=== PATIENT | male | born 1950 | race Hispanic/Latino ===

== ENCOUNTER → 2018-01-19 | Outpatient (CLI) | payer OTHER ==
[~2018-01-19] MED LIST: NO HOME MEDS
== END | disposition home or self-care (01) ==
LOC: OIH 10:38
PROVIDERS: ATTEND Internal Medicine
DX: R07.89 Other chest pain (principal)
CPT/HCPCS: 71046

== ENCOUNTER → 2018-05-19 | Outpatient (CLI) | payer OTHER | END | disposition home or self-care (01) | LOC: OIH 07:37 | PROVIDERS: ATTEND Internal Medicine | DX: I10 Essential (primary) hypertension (principal) | CPT/HCPCS: 71046 ==

== ENCOUNTER → 2018-08-11 | Outpatient (CLI) | payer OTHER | END | disposition home or self-care (01) | LOC: RAH 10:00 | PROVIDERS: ATTEND Internal Medicine | DX: N20.0 Calculus of kidney (principal); R16.0 Hepatomegaly, not elsewhere classified; M47.816 Spondylosis without myelopathy or radiculopathy, lumbar region; N40.0 Benign prostatic hyperplasia without lower urinary tract symptoms; Z90.49 Acquired absence of other specified parts of digestive tract | CPT/HCPCS: 74176 ==

== ENCOUNTER → 2019-05-09 | Outpatient (CLI) | payer OTHER | END | disposition home or self-care (01) | LOC: OIH 07:55 | PROVIDERS: ATTEND Internal Medicine | DX: I10 Essential (primary) hypertension (principal); M47.814 Spondylosis without myelopathy or radiculopathy, thoracic region | CPT/HCPCS: 71046 ==

== ENCOUNTER 2020-05-22 07:49 | Day surgery (SDC) | payer OTHER ==
[2020-05-16 12:27] LABS: BASOPHILS % (AUTO) 0.6 % (0.0-5.0); EOSINOPHILS % (AUTO) 2.3 % (0.0-8.0); HEMATOCRIT 44.8 % (42-54); LYMPHOCYTES % (AUTO) 38.9 % (21.0-51.0); MEAN CORPUSCULAR HEMOGLOBIN 30.3 pg (27.0-33.0); MEAN CORPUSCULAR HGB CONC 33.5 g/dL (32.0-36.0); MEAN CORPUSCULAR VOLUME 90.5 fL (79-99); MONOCYTES % (AUTO) 8.3 % (3.0-13.0); NEUTROPHILS % (AUTO) 49.7 % (40.0-77.0); PLATELET COUNT (AUTO) 196 K/uL (130-400); RED BLOOD CELL COUNT(AUTO) 4.95 MIL/uL (4.50-6.20); WHITE BLOOD COUNT (AUTO) 6.6 K/uL (4.8-10.8)
[2020-05-16 12:32] LABS: APPEARANCE,URINE Clear (CLEAR); BILIRUBIN,URINE Negative (NEGATIVE); COLOR,URINE Yellow (YELLOW); GLUCOSE, URINE (UA) Negative (NEGATIVE); KETONES,URINE Negative (NEGATIVE); LEUKOCYTE ESTERASE ,URINE Moderate (NEGATIVE); NITRATE,URINE Negative (NEGATIVE); OCCULT BLOOD,URINE Moderate (NEGATIVE); PROTEIN,URINE Negative (NEGATIVE); UROBILINOGEN,URINE 0.2 mg/dL (0.2-1.0)
[2020-05-16 12:44] LABS: INR 1.04 (0.85-1.15); PROTHROMBIN TIME 11.1 SEC (9.6-11.6)
[2020-05-16 12:45] LABS: PARTIAL THROMBOPLASTIN TIME 26.2 SEC (26.3-35.5)
[2020-05-16 12:49] LABS: POTASSIUM 4.5 mmol/L (3.5-5.1)
[2020-05-16 12:56] LABS: BACTERIA,URINE Few /HPF (None Seen)
[2020-05-16 12:57] LABS: SQUAMOUS EPITHELIAL CELL,UR None Seen /HPF (0-2)
[2020-05-20 14:00] VITALS: BP 140/81
[~2020-05-22] VITALS: Ht 175.3 cm; Wt 104.2 kg
[2020-05-22] VITALS (20 sets, daily range): BP systolic 88–156; BP diastolic 51–92
[2020-05-22] MEDS: GENTAMICIN SULFATE 320 MG in SODIUM CHLORIDE 0.9% 100 ML IV SCH ×2 (06:00→10:05)
[2020-05-22] MEDS: CEFTRIAXONE SODIUM 1 GM IVP SCH ×2 (06:00→10:20)
[~2020-05-22 07:49] MED LIST changes: +ATOR10 PO; +DICL50TA9 PO; +LEVO500T89 PO; +LOSA50TA64 PO; +MULT-1333 PO; -NO HOME MEDS; +OMEP20TA2 PO; +TAMS-1 PO; +WHEA1POW2 PO
[2020-05-22] MEDS ORDERED: LACTATED RINGERS 1000ML 1,000 ML IV ONE (09:02)
[2020-05-22] MEDS ORDERED: MIDAZOLAM HCL 1 MG/ML 2ML VIAL ONE ×2 (09:03→10:02)
[2020-05-22] MEDS ORDERED: ONDANSETRON HCL 4 MG/2 ML VIAL ONE (10:02)
[2020-05-22] MEDS ORDERED: LIDOCAINE PF 2% 5ML ABBOJECT ONE (10:02)
[2020-05-22] MEDS ORDERED: DEXAMETHASONE SOD PHOSPHATE 10MG/ML 1ML VIAL ONE (10:02)
[2020-05-22] MEDS ORDERED: SUCCINYLCHOLINE 200MG/10ML SYR ONE (10:02)
[2020-05-22] MEDS ORDERED: PROPOFOL 10 MG/ML 20ML VIAL IV ONE (10:03)
[2020-05-22] MEDS ORDERED: ROCURONIUM 10MG/1ML SYR 10 MG/ML ML ONE ×3 (10:03→12:23)
[2020-05-22] MEDS ORDERED: FENTANYL CITRATE PF 50 MCG/1 ML 2ML VIAL ONE (10:03)
[2020-05-22] MEDS ORDERED: EPHEDRINE SULFATE 50 MG/ML AMPULE ONE (10:31)
[2020-05-22] MEDS ORDERED: NEOSTIGMINE 5MG/5ML SYR IV ONE (12:34)
[2020-05-22] MEDS ORDERED: GLYCOPYRROLATE 1 MG/5 ML SYRINGE ONE (12:34)
[2020-05-22] MEDS ORDERED: SUGAMMADEX SODIUM 200 MG/2 ML VIAL IV ONE (12:36)
[2020-05-22] MEDS ORDERED: MEPERIDINE-PF 25 MG/ML SYG ONE ×2 (13:07→13:30)
== END 2020-05-22 14:40 ==
LOC: DAH 07:49
PROVIDERS: ATTEND Urology
DX: N40.1 Benign prostatic hyperplasia with lower urinary tract symptoms (principal); N21.0 Calculus in bladder; R33.9 Retention of urine, unspecified; E66.01 Morbid (severe) obesity due to excess calories; I10 Essential (primary) hypertension; Z79.01 Long term (current) use of anticoagulants; Z79.899 Other long term (current) drug therapy; Z20.828 Contact with and (suspected) exposure to other viral communicable diseases
CPT/HCPCS: 36415 ×2; 52318; 52648; 71045; 80048; 81001; 82360; 85025; 85610; 85730; 87077; 87088; 87186; 93005; A4215; A4216; A4221; A4222; A4223; A4354; A4358; A4600; A4649; A4663; A6260; C9803; J0330; J0696; J1100; J1580; J2001; J2175 ×2; J2250 ×2; J2405; J2704; J2710; J3010; J3490 ×2; J7120 ×2; U0003

== ENCOUNTER → 2021-03-31 | Outpatient (CLI) | payer OTHER ==
[~2021-03-31] MED LIST changes: -LEVO500T89 PO; +LEVO500T90 PO
== END | disposition home or self-care (01) ==
LOC: OIH 09:40
PROVIDERS: ATTEND Internal Medicine
DX: M47.816 Spondylosis without myelopathy or radiculopathy, lumbar region (principal); Z90.49 Acquired absence of other specified parts of digestive tract
CPT/HCPCS: 72100

== ENCOUNTER 2021-05-06 18:39 | Emergency (ER) | payer OTHER ==
[~2021-05-06] VITALS: Ht 172.7 cm; Wt 103.0 kg
[2021-05-06] MEDS ORDERED: ACETAMINOPHEN 500 MG TABLET ONE (20:12)
[2021-05-06] MEDS ORDERED: ACETAMINOPHEN 500 MG TABLET PO ONE (20:30)
[2021-05-06 21:53] LABS: BASOPHILS % (AUTO) 0.3 % (0.0-5.0); EOSINOPHILS % (AUTO) 0.5 % (0.0-8.0); HEMATOCRIT 43.7 % (42-54); LYMPHOCYTES % (AUTO) 10.1 % (21.0-51.0); MEAN CORPUSCULAR HEMOGLOBIN 30.1 pg (27.0-33.0); MEAN CORPUSCULAR HGB CONC 33.4 g/dL (32.0-36.0); MEAN CORPUSCULAR VOLUME 90.1 fL (79-99); MONOCYTES % (AUTO) 10.6 % (3.0-13.0); NEUTROPHILS % (AUTO) 78.2 % (40.0-77.0); PLATELET COUNT (AUTO) 159 K/uL (130-400); RED BLOOD CELL COUNT(AUTO) 4.85 MIL/uL (4.50-6.20); RED CELL DISTRIBUTION WIDTH 13.2 % (11.0-15.5); WHITE BLOOD COUNT (AUTO) 9.3 K/uL (4.8-10.8)
[2021-05-06 22:12] LABS: CREATININE 1.1 mg/dL (0.5-1.5); POTASSIUM 4.5 mmol/L (3.5-5.1)
[2021-05-06 22:17] LABS: ALBUMIN 4.1 g/dL (3.5-5.0); BILIRUBIN,TOTAL 1.2 mg/dL (0.2-1.0); CRP QUANTITATIVE 2.5 mg/L (0.00-9.0); TOTAL PROTEIN, SERUM 7.1 g/dL (6.0-8.3)
[2021-05-06] MEDS ORDERED: OSELTAMIVIR PHOSPHATE 75 MG CAP PO ONE (22:30)
[2021-05-06] MEDS ORDERED: OSEL75 PO (22:35)
[2021-05-06] MEDS ORDERED: ACET-2247 PO (22:35)
[2021-05-06 22:48] VITALS: BP 124/60
== END 2021-05-06 22:45 | disposition home or self-care (01) ==
LOC: EDH 18:39
DX: J10.1 Influenza due to other identified influenza virus with other respiratory manifestations (principal); I10 Essential (primary) hypertension; E78.00 Pure hypercholesterolemia, unspecified; Z20.822 Contact with and (suspected) exposure to COVID-19; Z87.442 Personal history of urinary calculi; Z98.890 Other specified postprocedural states; Z79.899 Other long term (current) drug therapy
CPT/HCPCS: 36415; 71045; 80053; 83605; 84484; 85025; 86140; 87040 ×2; 87635; 87804 ×2; 99284; C9803

== ENCOUNTER 2023-10-13 06:41 | Day surgery (SDC) | payer OTHER ==
[2023-10-07 12:33] LABS: BASOPHILS # (AUTO) 0.04 K/uL (0.00-0.20); BASOPHILS % (AUTO) 0.6 % (0.0-5.0); EOSINOPHILS # (AUTO) 0.11 K/uL (0.00-0.70); EOSINOPHILS % (AUTO) 1.7 % (0.0-8.0); IMMATURE GRANULOCYTE ABSOLUTE 0.02 K/uL (0-1); LYMPHOCYTES # (AUTO) 2.5 K/uL (1.0-4.8); LYMPHOCYTES % (AUTO) 37.7 % (21.0-51.0); MEAN CORPUSCULAR HEMOGLOBIN 30.7 pg (27.0-33.0); MEAN CORPUSCULAR HGB CONC 33.7 g/dL (32.0-36.0); MEAN CORPUSCULAR VOLUME 91.1 fL (79-99); MONOCYTES # (AUTO) 0.5 K/uL (0.1-1.0); MONOCYTES % (AUTO) 8.1 % (3.0-13.0); NEUTROPHILS # (AUTO) 3.4 K/uL (1.8-7.7); NEUTROPHILS % (AUTO) 51.6 % (40.0-77.0); PLATELET COUNT (AUTO) 189 K/uL (130-400); RED BLOOD CELL COUNT(AUTO) 4.72 MIL/uL (4.50-6.20); WHITE BLOOD COUNT (AUTO) 6.6 K/uL (4.8-10.8)
[2023-10-07 12:45] LABS: POTASSIUM 4.7 mmol/L (3.5-5.1)
[2023-10-07 12:55] VITALS: BP 162/83; PULSE 54; RESP 17
[2023-10-07 13:32] LABS: APPEARANCE,URINE CLEAR (CLEAR); BILIRUBIN,URINE NEGATIVE (NEGATIVE); COLOR,URINE LIGHT-YELLOW (YELLOW); GLUCOSE, URINE (UA) NEGATIVE (NEGATIVE); KETONES,URINE NEGATIVE (NEGATIVE); LEUKOCYTE ESTERASE ,URINE NEGATIVE Leu/uL (NEGATIVE); NITRATE,URINE NEGATIVE (NEGATIVE); OCCULT BLOOD,URINE NEGATIVE (NEGATIVE); PH,URINE 5.5 (5.0-8.0); PROTEIN,URINE 10 mg/dL (NEGATIVE); UROBILINOGEN,URINE 0.2 mg/dL (0.2-1.0)
[2023-10-07 13:34] LABS: ADD UA MICROSCOPIC YES
[2023-10-07 13:36] LABS: MUCUS,URINE RARE LPF (None Seen); RBC,URINE 0-1 /HPF (0-1); SQUAMOUS EPITHELIAL CELL,UR RARE /HPF (0-2); WBC,URINE 0-1 /HPF (0-1)
[~2023-10-13] VITALS: Ht 172.7 cm; Wt 101.9 kg
[2023-10-13] VITALS (17 sets, daily range): BP systolic 105–162; BP diastolic 58–88; PULSE 58–79; RESP 14–18
[~2023-10-13 06:41] MED LIST changes: +ACET-2247 PO; +LEVO-70 PO; -LEVO500T90 PO; +OSEL75 PO
[2023-10-13] MEDS: MEROPENEM 1 GM VIAL ONE (08:20)
[2023-10-13] MEDS: LACTATED RINGERS 1000ML 1,000 ML IV ONE (08:21)
[2023-10-13] MEDS ORDERED: FINA5TAB41 PO (08:46)
[2023-10-13] MEDS ORDERED: MIDAZOLAM HCL 1 MG/ML 2ML VIAL ONE (08:46)
[2023-10-13] MEDS ORDERED: benafiber PO (08:46)
[2023-10-13] MEDS ORDERED: MELA10TA2 PO (08:46)
[2023-10-13] MEDS ORDERED: DICL35CA3 PO (08:46)
[2023-10-13] MEDS ORDERED: TAMS-1 PO (08:46)
[2023-10-13] MEDS ORDERED: ATOR10 PO (08:46)
[2023-10-13] MEDS ORDERED: LOSA50TA64 PO (08:46)
[2023-10-13] MEDS ORDERED: MULT-1203 PO (08:46)
[2023-10-13] MEDS ORDERED: GABA-529 PO (08:46)
[2023-10-13] MEDS: MEROPENEM 1 GM VIAL IVPB ONE ×2 (08:50)
[2023-10-13] MEDS ORDERED: SUCCINYLCHOLINE CHLORIDE 20 MG/ML 10 ML VIAL ONE (08:51)
[2023-10-13] MEDS ORDERED: PROPOFOL 10 MG/ML 20ML VIAL IV ONE (08:51)
[2023-10-13] MEDS ORDERED: FENTANYL CITRATE PF 50 MCG/1 ML 2ML VIAL ONE (08:52)
[2023-10-13] MEDS ORDERED: ROCURONIUM BROMIDE 10MG/1ML 5ML VL ONE (08:52)
[2023-10-13] MEDS ORDERED: EPHEDRINE SULFATE 50 MG/ML AMPULE ONE (09:26)
[2023-10-13] MEDS ORDERED: NEOSTIGMINE METHYLSULFATE 1MG/ML IV ONE (09:36)
[2023-10-13] MEDS ORDERED: GLYCOPYRROLATE 0.2 MG/ML 5 ML VIAL ONE (09:36)
[2023-10-13] MEDS ORDERED: NALOXONE HCL 0.4 MG/1 ML ML ONE (09:47)
[2023-10-13] MEDS ORDERED: SULF1TAB42 PO ×2 (11:06)
== END 2023-10-13 11:30 | disposition home or self-care (01) ==
LOC: DAH 06:41
PROVIDERS: ATTEND Urology
DX: N21.0 Calculus in bladder (principal); E66.01 Morbid (severe) obesity due to excess calories; I10 Essential (primary) hypertension; Z98.890 Other specified postprocedural states; Z68.34 Body mass index [BMI] 34.0-34.9, adult
CPT/HCPCS: 71045; 80048; 85025; 87088; 81001; 36415 ×2; 93005; 52317; 82360; A6260; A4663; J7120 ×2; A4344; A4354; C1758; J3010; J2310; J0330; J3490 ×3; J2250; J2704; J2710; J2185 ×2; A4358; A4215; A4223; A4222; A4221; A4600

== ENCOUNTER → 2023-12-08 | Outpatient (CLI) | payer OTHER ==
[~2023-12-08] MED LIST changes: -ACET-2247 PO; +DICL35CA3 PO; -DICL50TA9 PO; +FINA5TAB41 PO; +GABA-529 PO; -LEVO-70 PO; +MELA10TA2 PO; +MULT-1203 PO; -MULT-1333 PO; -OMEP20TA2 PO; -OSEL75 PO; +SULF1TAB42 PO; -WHEA1POW2 PO; +benafiber PO
== END | disposition home or self-care (01) ==
LOC: RAH 11:10
PROVIDERS: ATTEND Internal Medicine
DX: S83.242A Other tear of medial meniscus, current injury, left knee, initial encounter (principal); M17.12 Unilateral primary osteoarthritis, left knee; M23.90 Unspecified internal derangement of unspecified knee; M25.462 Effusion, left knee; Z68.34 Body mass index [BMI] 34.0-34.9, adult; X58.XXXA Exposure to other specified factors, initial encounter; Y93.89 Activity, other specified; Y92.89 Other specified places as the place of occurrence of the external cause; Y99.8 Other external cause status
CPT/HCPCS: 73560

== ENCOUNTER → 2024-03-15 | Outpatient (CLI) | payer OTHER ==
[~2024-03-15] MED LIST changes: +GADOTERATE MEGLUMINE 10 MMOL/20 ML VIAL IV ONE
--- NOTE | 2024-03-15 15:34 | HMCIMG ---
MR KNEE LEFT WWO HISTORY: Left knee pain COMPARISON: None TECHNIQUE: MRI of the left knee was performed utilizing multiple pulse sequences in axial, coronal and sagittal planes. Patient was given 20 cc of Clariscan through intravenous route. FINDINGS: No abnormal signal intensity is seen of the visualized bony structure. There is anterior cruciate ligament tear. There is posterior cruciate ligament sprain. There are motion artifacts degrading the image quality. Medial collateral ligament sprain is seen. Lateral collateral ligament is intact. Focal cartilage loss is seen involving the medial femorotibial joint compartment. Moderate joint effusion is seen. Quadriceps tendon and patellar tendon are within normal limits. There is intrasubstance tear involving the medial and lateral menisci. There is medial meniscal tear involving anterior horn, posterior horn and body with both superior and inferior extension. No evidence of Clark's cyst is seen. IMPRESSION: 1. Medial meniscal tear. Anterior cruciate ligament tear. Posterior cruciate sprain and medial collateral ligament sprain. Moderate joint effusion.
== END | disposition home or self-care (01) ==
LOC: RAH 13:14
PROVIDERS: ATTEND Internal Medicine
DX: S83.242A Other tear of medial meniscus, current injury, left knee, initial encounter (principal); S83.512A Sprain of anterior cruciate ligament of left knee, initial encounter; M23.92 Unspecified internal derangement of left knee; M25.462 Effusion, left knee; R26.81 Unsteadiness on feet; X58.XXXA Exposure to other specified factors, initial encounter; Y93.89 Activity, other specified; Y92.89 Other specified places as the place of occurrence of the external cause; Y99.8 Other external cause status
CPT/HCPCS: 73723; A9575

== ENCOUNTER → 2024-11-02 | Outpatient (CLI) | payer OTHER ==
[~2024-11-02] MED LIST changes: -GADOTERATE MEGLUMINE 10 MMOL/20 ML VIAL IV ONE; -TAMS-1 PO; +TAMS-55 PO
--- NOTE | 2024-11-03 05:08 | HMCIMG ---
EXAM: CT Abdomen and Pelvis without IV contrast. CLINICAL HISTORY: Renal calculi. TECHNIQUE: Thin collimated axial CT images of the abdomen and pelvis were obtained with sagittal and coronal reformatted images also submitted. CT scan done according to ALARA (As Low As Reasonably Achievable). CONTRAST: None. COMPARISON: CT abdomen and pelvis without contrast dated 08/11/18. FINDINGS: Unremarkable visualized lung parenchyma. There is no focal abnormality appreciated within the liver, pancreas, spleen, adrenals, or kidneys. Post-cholecystectomy status. There is a calculus of size 12 x 7.4 x 6 mm in the left distal ureter at the S1 vertebral level with periureteric fat stranding and without hydroureteronephrosis. Status post partial right hemicolectomy with ileocolic anastomosis. There is no obvious bowel wall thickening. The remaining visualized loops are normal in caliber without evidence of obstruction or ileus. Minimally distended urinary bladder. Severe prostatomegaly measuring about 6 x 5.1 x 6.5 cm (CC x AP x TR) with corpora amylacea calcification. Small bilateral fat-containing inguinal hernias. Abdominal and pelvic vessels are patent. No lymphadenopathy. No free fluid. There is no acute osseous abnormality. Mild degenerative osseous changes. IMPRESSION: 1. 12 x 7.4 x 6 mm left distal ureteral calculus at S1 level with periureteric fat stranding, without hydroureteronephrosis. 2. Severe prostatomegaly measuring 6 x 5.1 x 6.5 cm with corpora amylacea calcification. 3. Small bilateral fat-containing inguinal hernias. 4. Post-surgical changes: cholecystectomy and partial right hemicolectomy with ileocolic anastomosis. Compared with the prior CT dated 08/11/18, the left distal ureteric calculus is a new finding. The left renal calculus is not visualized in the present scan. The remaining findings are relatively stable. /[place]
== END | disposition home or self-care (01) ==
LOC: RAH 10:00
PROVIDERS: ATTEND Urology
DX: N40.0 Benign prostatic hyperplasia without lower urinary tract symptoms (principal); N20.2 Calculus of kidney with calculus of ureter; N21.0 Calculus in bladder; K40.20 Bilateral inguinal hernia, without obstruction or gangrene, not specified as recurrent; M47.817 Spondylosis without myelopathy or radiculopathy, lumbosacral region; Z90.49 Acquired absence of other specified parts of digestive tract; Z98.0 Intestinal bypass and anastomosis status
CPT/HCPCS: 74176

== ENCOUNTER → 2024-11-19 | Outpatient (CLI) | payer OTHER ==
--- NOTE | 2024-11-20 06:37 | HMCIMG ---
EXAM: Tomogram Abdomen, 5 views. CLINICAL HISTORY: Renal calculus. COMPARISON: X-ray abdomen of the same date. FINDINGS: Nonobstructed nonspecific bowel gas pattern. No free air evident. No abnormal calcification. No aggressive appearing osseous lesion. IMPRESSION: No acute process. No obvious renal calculi. No gross interval change [facility] /[place]
--- NOTE | 2024-11-20 06:42 | HMCIMG ---
EXAM: CR Abdomen, 1 view. CLINICAL HISTORY: Renal and ureteric calculi. COMPARISON: CT abdomen and pelvis dated 11/02/24. FINDINGS: Nonobstructed nonspecific bowel gas pattern. Mild fecal loading of the large bowel loops. No free air evident. No abnormal calcification. No aggressive appearing osseous lesion. IMPRESSION: No acute process. No obvious renal or ureteric calculi identified. Mild fecal loading of the large bowel loops. Prior CT abdomen and pelvis dated 11/02/24 reveals a left distal ureteric calculus. /[place]
== END | disposition home or self-care (01) ==
LOC: RAH 10:27
PROVIDERS: ATTEND Urology
DX: N20.2 Calculus of kidney with calculus of ureter (principal)
CPT/HCPCS: 74018; 76100

== ENCOUNTER → 2024-12-14 | Outpatient (CLI) | payer OTHER ==
--- NOTE | 2024-12-15 11:28 | HMCIMG ---
INDICATION: CALCULUS OF KIDNEY. COMPARISON: None. TECHNIQUE: CT images were created without intravenous contrast. Numerous low-radiation dose strategies were employed including AEC (Automatic Exposure Control), individualized BMI-based low dose scan protocols and the exam was performed on a CT scanner that is compliant with the NEMA XR-29 Smart Dose Standard. DICOM Radiation Dose Structured Reporting capability and Dose Check Standard are also features of this scanner. RADIATION DOSE ESTIMATE: CTDIvol (mGy): 12.0 \ DLP (mGy-cm): 731.30 FINDINGS: LIVER: No enlargement or visible focal lesion. BILIARY: Normal. No visible dilatation or calcification. The gallbladder is surgically absent. PANCREAS: Normal. No lesion, fluid collection, ductal dilatation, or acute inflammation. SPLEEN: Normal. No enlargement or focal lesion. KIDNEYS: Normal. No visible mass, obstruction, or nephrolithiasis. The left distal third ureter there is a calculus measuring 1.1 x 0.6 cm. This is unchanged from prior study. ADRENALS: Normal. No mass or enlargement. AORTA/VASCULAR: Normal allowing for the absence of intravenous contrast. No visible aneurysm. RETROPERITONEUM: Normal. No mass or adenopathy. BOWEL/MESENTERY: Normal. No visible mass, obstruction, or bowel wall thickening. Patient is status post right hemicolectomy with ileocolic anastomosis. ABDOMINAL WALL: Normal. No mass or hernia. BONES: Normal for age. LUNG BASES: Normal. No visible pulmonary or pleural disease. OTHER: There is prostatomegaly which was seen before and appears to be unchanged. There are bilateral inguinal hernia with properitoneal fat.. IMPRESSION: Left distal ureter at the level of the SI joint there is a 1.1 x 0.6 cm calculus Prostatomegaly. I would recommend correlation with PSA and transrectal prostate sonogram The study is unchanged from prior CT.
== END | disposition home or self-care (01) ==
LOC: RAH 12:35
PROVIDERS: ATTEND Urology
DX: N20.1 Calculus of ureter (principal); N40.0 Benign prostatic hyperplasia without lower urinary tract symptoms; K40.20 Bilateral inguinal hernia, without obstruction or gangrene, not specified as recurrent; Z90.49 Acquired absence of other specified parts of digestive tract
CPT/HCPCS: 74176

== ENCOUNTER → 2024-12-26 | Outpatient (CLI) | payer OTHER ==
[2024-12-26 10:24] LABS: IMMATURE GRANULOCYTE ABSOLUTE 0.04 K/uL (0-1); NUCLEATED RED BLOOD CELLS 0.0 % (0.0-0.19); PLATELET COUNT (AUTO) 185 K/uL (130-400); RED BLOOD CELL COUNT(AUTO) 4.84 MIL/uL (4.50-6.20); RED CELL DISTRIBUTION WIDTH 13.1 % (11.0-15.5); WHITE BLOOD COUNT (AUTO) 6.9 K/uL (4.8-10.8)
[2024-12-26 10:35] LABS: CREATININE 1.1 mg/dL (0.5-1.3); GLOMERULAR FILTR. RATE CALC 70.0 mL/min (>90); GLUCOSE,RANDOM 91.0 mg/dL (70-105); SODIUM SERUM 141.0 mmol/L (136-145); UREA NITROGEN, BLOOD 23.0 mg/dL (7-18)
== END | disposition home or self-care (01) ==
LOC: LAB 09:34
PROVIDERS: ATTEND Urology
DX: N20.0 Calculus of kidney (principal)
CPT/HCPCS: 36415; 80048; 85025

== ENCOUNTER → 2024-12-31 | Outpatient (CLI) | payer OTHER ==
[~2024-12-31] MED LIST changes: +IOHEXOL-350 50ML VIAL IV ONE
--- NOTE | 2024-12-31 10:55 | HMCIMG ---
CLINICAL HISTORY: Calculus of kidney. COMPARISON: None. TECHNIQUES: Intravenous excretory urogram was performed. FINDINGS: A dental surgeon film of the abdomen shows no soft tissue abnormality and no pathologic calcification overlying the renal contour or bladder noted. Following intravenous infusion of 100 mL Omnipaque 350 contrast material, there is prompt symmetrical concentration as noted by nephrograms. No filling defect of the collecting systems are noted. There is normal and symmetrical filling of the calyceal system. Subsequent films demonstrate that the kidneys are of normal size and contour bilaterally. The calyceal system and ureters are in their usual position and show no signs of obstruction or intraluminal defects. The post void film shows normal emptying of the collecting system including the urinary bladder. IMPRESSION: Negative intravenous urogram.
== END | disposition home or self-care (01) ==
LOC: RAH 08:54
PROVIDERS: ATTEND Urology
DX: N20.0 Calculus of kidney (principal)
CPT/HCPCS: 74400; Q9967 ×2

== ENCOUNTER → 2025-01-14 | Outpatient (CLI) | payer OTHER ==
[~2025-01-14] MED LIST changes: -IOHEXOL-350 50ML VIAL IV ONE
--- NOTE | 2025-01-15 12:33 | HMCIMG ---
EXAM: CR Chest, 1 views. CLINICAL HISTORY: Cough. COMPARISON: None provided. FINDINGS: The lungs show no infiltrate or other acute findings. No pleural effusion or pneumothorax. The cardiomediastinal silhouette is within normal limits. No acute osseous abnormality. IMPRESSION: 1. No acute cardiopulmonary pathology is evident. /[place]
== END | disposition home or self-care (01) ==
LOC: RAH 08:28
PROVIDERS: ATTEND Internal Medicine
DX: Z01.818 Encounter for other preprocedural examination (principal)
CPT/HCPCS: 71046

== ENCOUNTER 2025-01-22 07:18 | Observation (INO) | payer OTHER ==
[2025-01-21 12:24] VITALS: BP 135/73; PULSE 52; RESP 13; TEMP 97.4
[2025-01-21 12:24] LABS: IMMATURE GRANULOCYTE ABSOLUTE 0.02 K/uL (0-1); NUCLEATED RED BLOOD CELLS 0.0 % (0.0-0.19); PLATELET COUNT (AUTO) 183 K/uL (130-400); RED BLOOD CELL COUNT(AUTO) 4.83 MIL/uL (4.50-6.20); RED CELL DISTRIBUTION WIDTH 12.9 % (11.0-15.5); WHITE BLOOD COUNT (AUTO) 6.3 K/uL (4.8-10.8)
[2025-01-21 12:42] LABS: APPEARANCE,URINE CLEAR (CLEAR); GLUCOSE, URINE (UA) NEGATIVE (NEGATIVE); LEUKOCYTE ESTERASE ,URINE NEGATIVE Leu/uL (NEGATIVE); NITRATE,URINE NEGATIVE (NEGATIVE); OCCULT BLOOD,URINE NEGATIVE (NEGATIVE)
[2025-01-21 12:44] LABS: INR 1.03 (0.85-1.15)
[2025-01-21 12:44] LABS: ADD UA MICROSCOPIC NO
--- NOTE | 2025-01-21 12:52 | NUR ---
RE: IS INITIAL IS INITIAL TEACHING DONE BY RT COLLEEN DURING PREOP.
[~2025-01-22] VITALS: Ht 172.7 cm; Wt 100.7 kg
[2025-01-22] VITALS (20 sets, daily range): BP systolic 121–145; BP diastolic 52–89; PULSE 57–99; RESP 18–22; TEMP 97–98; O2SAT 96
[~2025-01-22 07:18] MED LIST changes: +ACET-2123 PO; +CYAN-106 PO; -DICL35CA3 PO; +FAMO40TA7 PO; -FINA5TAB41 PO; +PANT40TA54 PO; -SULF1TAB42 PO; -TAMS-55 PO; -benafiber PO
[2025-01-22] MEDS ORDERED: VANCOMYCIN 500MG+NS 100ML 100 ML IV ONE (09:00)
[2025-01-22] MEDS ORDERED: MIDAZOLAM HCL 1 MG/ML 2ML VIAL ONE (10:53)
[2025-01-22] MEDS: TRANEXAMIC ACID 1000MG/10ML ONE ×2 (12:40→15:26)
[2025-01-22] MEDS ORDERED: NEOSTIGMINE METHYLSULFATE 1MG/ML IV ONE (14:50)
[2025-01-22] MEDS ORDERED: GLYCOPYRROLATE 0.2 MG/ML 5 ML VIAL ONE (14:51)
--- NOTE | 2025-01-22 15:29 | OP ---
Operative Note: DATE OF PROCEDURE: 01/22/25 SURGEON: KEVIN BLAIR MD WEATHER ANCHOR: [Danny Gutierrez and Shell Borges, LUIS's] ANESTHESIA: [General anesthesia plus regional block] ANESTHESIOLOGIST/PROC TECH: [Lakhwinder Ramirez CRNA] PREOPERATIVE DIAGNOSIS: [Left knee osteoarthritis] POSTOPERATIVE DIAGNOSIS: [Same] IMPLANTS: [Biomet vanguard. Femur size 67.5 PS left. Tibia size83 fixed cruciate. Patella size37 x 10, asymmetric. Tibial liner size 10 x 79/83 PS] PROCEDURE: [Total knee arthroplasty] ESTIMATED BLOOD LOSS: [100 mL] INDICATIONS: [The patient is a 75-year-old male with a history of pain to the left knee that has been treated conservatively for several years already. The patient has decided that he wants to proceed with total knee arthroplasty. The procedure was explained to the patient, risks, benefits and possible complications and agreed to sign the consent form.] DESCRIPTION OF PROCEDURE: [After adequate general anesthesia was achieved and regional block obtained the left lower extremity was prepped and draped in the usual manner previous placement of the tourniquet in the proximal thigh. The extremity was then elevated and exsanguinated with an Esmarch bandage and the tourniquet inflated to 250 mmHg the Esmarch band been then removed. With the knee in flexion a longitudinal incision was then made in the anterior aspect through the skin followed by dissection of the subcutaneous tissue. A bone infusion needle was then inserted just medial to the tibial tuberosity and through this needle we injected into the bone a solution of normal saline 50 mL mixed with 500 mg of vancomycin. The needle was removed. A paramedian approach was then made with the Bovie cautery cutting through the quadriceps tendon, medial patellar retinaculum and patellar tendon retinaculum. The retropatellar tendon fat was then excised and the soft tissue elements of the tibia were elevated subperiosteally and retractors were applied medially and laterally. The anterior and posterior cruciate ligaments were resected. With the use of a drill a starting hole was made in the distal femur entering the intramedullary canal and then after removal of the drill an intramedullary guide was inserted with a 5 degree valgus block that touched the distal femur and to this the distal femoral cutting guide was then applied anteriorly and was secured to the distal femur with the use of pins. The intramedullary guide was then removed and with the use of the oscillating saw we proceeded to resect the distal femur removing the fragments and the guide. The femoral sizer was then applied distally and drill holes were made removing the sizer and the 4-in-1 cutting block was then inserted and the anterior, posterior and chamfer cuts were made removing the fragments and the block. The PS cutting guide was then inserted and the intercondylar cut was made removing the fragment and the guide. The posterior cruciate ligament retractor was then inserted posterior to the tibia and this was brought forward proceeding then to apply the external tibial alignment guide and secured the proximal cutting guide to the tibia with the use of pins. With the use of the oscillating saw the proximal cut to the tibia tibia was made. The bone fragment was removed and the trial tibia plate was chosen. At this point the menisci were removed sharply and with the use of the curved osteotome the posterior osteophytes of the femur were removed. The trial components were then inserted at the femur and tibia with a trial tibial liner bringing the knee into extension noticing that the patient had a very stable knee in flexion, extension and with valgus and varus stress. The knee was maintained in extension and the patella was then addressed proceeding to measure its thickness and then with the use of the oscillating saw we removed eight mm from the articular surface and restored the height with application of a trial c omponent after 3 peg holes were made. The patellofemoral ligament was removed and then the patellofemoral tracking was checked noticing to be normal. At this moment all the components were removed, the tibia after the metaphyseal defect was created and while cement was being mixed on the back table we proceeded to irrigate the joint with antibiotic solution and then cover the entry to the femoral canal with a bone plug. Once the cement was ready we proceeded to apply it first to the tibia surface inserting the final component and then to the femoral surface and inserted the final component removing the excess cement and then applying a trial liner bringing the knee into extension for compression. Then we proceeded to irrigate the patella surface and dried it applying then bone cement and the final patellar component was inserted and was secured with application of a clamp. The joint was irrigated with a warm diluted Betadine solution while the cement dried followed by irrigation with antibiotic solution. The trial liner was removed as well as the patellar clamp and we proceeded then to irrigate the posterior aspect of the joint to remove all the remaining debris and the final tibial liner was inserted and locked against the tibia. The range of motion was checked and noticed to be adequate with full extension and flexion, no laxity in valgus or varus stress and with adequate patellofemoral tracking. The patient had no anterior or posterior drawer. The tourniquet was then deflated and this was followed by hemostasis and the wound was then closed with approximation of the quadriceps tendon, patellar retinaculum and patellar tendon retinaculum with #1 Vicryl close stitches alternating with #1 Ethibond stitches, and closure of the subcutaneous tissue with 2-0 Monocryl inverted stitches and the skin was closed with 3-0 Monocryl subcuticularly. The wound was covered with a suction dressing followed by application of an Santhosh bandage for compression and the drapes were then removed transferring the patient to the hospital bed and taken to recovery room for follow-up by anesthesia. There were no complications during the procedure.] KEVIN BLAIR MD Jan 22, 2025 15:29
[2025-01-22] MEDS ORDERED: CALCIUM CARB 500MG PO PRN (15:30)
[2025-01-22] MEDS ORDERED: FERROUS FUMARATE 324 MG TABLET PO PRN (15:30)
[2025-01-22] MEDS ORDERED: PoTASSium chloRIDE 20MEQ ER 20 MEQ ERTAB PO PRN (15:30)
[2025-01-22] MEDS ORDERED: PoTASSium chl 10% ELIXIR 20MEQ 20 MEQ/15 ML UDCUP PO PRN (15:30)
[2025-01-22] MEDS: LACTATED RINGERS 1000ML 1,000 ML IV ONE (16:30)
--- NOTE | 2025-01-22 16:30 | NUR ---
PATIENT ARRIVED TO ROOM WITH LORETTA YE FROM PACU. PATIENT ALERT ORIENT. PATIENT HAD VOMIT ON ROUTE TO ROOM. GOWN AND SHEETS CHANGE. PATIENT AND FAMILY ORIENTED TO ROOM. SCD APPLIED. BED AT LOWEST POSITION. CALL LIGHT WITHIN REACH, BED LOCKED. FAMILY AT BEDSIDE. ALL QUESTIONS AND CONCERNS ANSWERED.
[2025-01-22] MEDS: 0.9%NACL 1000ML 1,000 ML IV SCH (17:36)
[2025-01-22] MEDS: ASPIRIN 81 MG EC TAB PO SCH (20:13)
[2025-01-22] MEDS ORDERED: NON-FORMULARY MEDICATION 1 EACH (Famotidine 40 MG) PO SCH (21:00)
[2025-01-23] VITALS (8 sets, daily range): BP systolic 110–179; BP diastolic 60–77; PULSE 64–82; RESP 17–19; TEMP 98.1–99.7; O2SAT 97–98
[2025-01-23 04:17] LABS: NUCLEATED RED BLOOD CELLS 0.0 % (0.0-0.19); PLATELET COUNT (AUTO) 169.0 K/uL (130-400); RED BLOOD CELL COUNT(AUTO) 4.27 MIL/uL (4.50-6.20); RED CELL DISTRIBUTION WIDTH 13.1 % (11.0-15.5); WHITE BLOOD COUNT (AUTO) 12.0 K/uL (4.8-10.8)
[2025-01-23 04:34] LABS: CREATININE 1.0 mg/dL (0.5-1.3); GLOMERULAR FILTR. RATE CALC 78.0 mL/min (>90); GLUCOSE,RANDOM 125.0 mg/dL (70-105); SODIUM SERUM 138.0 mmol/L (136-145); UREA NITROGEN, BLOOD 19.0 mg/dL (7-18)
--- NOTE | 2025-01-23 07:59 | PN ---
Ortho postop day one. This morning the patient is awake alert and oriented. The is present in the room. He is seated in a chair he is enjoying his breakfast reporting adequate pain control overnight and currently pain is well managed. Vital signs have remained stable he is afebrile. Laboratory results reviewed. Noted to have a drop in hemoglobin and hematocrit as expected after TKA. Patient is currently asymptomatic we will continue to observe and treat per protocol as necessary. Operative findings discussed with the patient. Voiding on his own without difficulty but yet to pass gas. The ramonita dressing is intact flashing green. Gastrocnemius soft nontender. Negative Homans. I provided a footstool and he is instructed to alternate extension and flexion while he is seated in a chair. Reinforced incentive spirometry. Ice present to the operative site. Ambulated yesterday about 10 ft and is pending further physical therapy this morning. Anticipated discharge goal is home health/PT. Assessment: Status post left total knee arthroplasty. Asymptomatic acute postoperative blood loss anemia. Plan: Continue with Dr. England TKA protocol and discharge planning. Asymptomatic acute postoperative blood loss anemia addressed with the protocol as necessary Vitals/Labs Vital Signs Date Time Temp Pulse Resp B/P (MAP) Pulse Ox O2 Delivery O2 Flow Rate FiO2 01/23/25 03:42 98.1 64 19 110/66 98 Room Air 21 01/22/25 20:00 0 Laboratory Tests 01/23/25 03:54 Medications Current Medications Cefazolin Sodium 2 gm STK-MED ONCE .ROUTE Last administered on 01/22/25at 12:45; Start 01/22/25 at 07:34; Stop 01/22/25 at 07:34; Status DC Lactated Ringer's 1,000 ml @ As Directed STK-MED ONCE IV; Start 01/22/25 at 07:34; Stop 01/22/25 at 07:34; Status DC Tranexamic Acid 1,000 mg STK-MED ONCE .ROUTE Last administered on 01/22/25at 12:40; Start 01/22/25 at 08:56; Stop 01/22/25 at 08:56; Status DC Cefazolin Sodium 1 gm STK-MED ONCE .ROUTE Last administered on 01/22/25at 13:16; Start 01/22/25 at 09:00; Stop 01/22/25 at 09:00; Status DC Vancomycin HCl 100 ml @ As Directed STK-MED ONCE IV; Start 01/22/25 at 09:00; Stop 01/22/25 at 09:00; Status DC Ondansetron HCl 4 mg STK-MED ONCE .ROUTE; Start 01/22/25 at 10:52; Stop 01/22/25 at 10:52; Status DC Midazolam HCl 2 mg STK-MED ONCE .ROUTE; Start 01/22/25 at 10:53; Stop 01/22/25 at 10:53; Status DC Propofol 200 mg STK-MED ONCE IV; Start 01/22/25 at 10:53; Stop 01/22/25 at 10:53; Status DC Rocuronium Hepzibah 50 mg STK-MED ONCE .ROUTE; Start 01/22/25 at 10:53; Stop 01/22/25 at 10:53; Status DC Fentanyl Citrate 100 mcg STK-MED ONCE .ROUTE; Start 01/22/25 at 10:53; Stop 01/22/25 at 10:53; Status DC Ephedrine Sulfate 50 mg STK-MED ONCE .ROUTE; Start 01/22/25 at 12:28; Stop 01/22/25 at 12:29; Status DC Cefazolin Sodium 1 gm STK-MED ONCE .ROUTE Last administered on 01/22/25at 13:17; Start 01/22/25 at 12:35; Stop 01/22/25 at 12:35; Status DC Fentanyl Citrate 100 mcg STK-MED ONCE .ROUTE; Start 01/22/25 at 13:12; Stop 01/22/25 at 13:13; Status DC Fentanyl Citrate 100 mcg STK-MED ONCE .ROUTE; Start 01/22/25 at 14:46; Stop 01/22/25 at 14:46; Status DC Ketorolac Tromethamine 30 mg STK-MED ONCE .ROUTE; Start 01/22/25 at 14:47; Stop 01/22/25 at 14:47; Status DC Neostigmine Methylsulfate 10 mg STK-MED ONCE IV; Start 01/22/25 at 14:50; Stop 01/22/25 at 14:51; Status DC Glycopyrrolate 1 mg STK-MED ONCE .ROUTE; Start 01/22/25 at 14:51; Stop 01/22/25 at 14:51; Status DC Fentanyl Citrate 100 mcg STK-MED ONCE .ROUTE Last administered on 01/22/25at 15:17; Start 01/22/25 at 15:11; Stop 01/22/25 at 15:11; Status DC Sodium Chloride 1,000 ml @ 100 mls/hr Q10H IV Last administered on 01/23/25at 03:13; Start 01/22/25 at 15:30; Stop 01/23/25 at 15:29 Polyethylene Glycol 17 gm DAILY PO; Start 01/23/25 at 09:00; Stop 02/22/25 at 08:59 Bisacodyl 10 mg DAILY PRN RC; Start 01/25/25 at 15:30; Stop 02/24/25 at 15:29 Ketorolac Tromethamine 15 mg Q6H PRN IV Last administered on 01/22/25at 20:14; Start 01/22/25 at 15:30; Stop 01/27/25 at 15:29 Tamsulosin HCl 0.4 mg DAILY PO; Start 01/23/25 at 09:00; Stop 02/22/25 at 08:59 Ferrous Fumarate 324 mg DAILY PRN PO; Start 01/22/25 at 15:30; Stop 02/21/25 at 15:29 Ondansetron HCl 4 mg Q6H PRN IVP; Start 01/22/25 at 15:30; Stop 02/21/25 at 15:29 Calcium Carbonate 500 mg Q12H PRN PO; Start 01/22/25 at 15:30; Stop 02/21/25 at 15:29 Diphenhydramine HCl 25 mg Q6H PRN IVP; Start 01/22/25 at 15:30; Stop 02/21/25 at 15:29 Cefazolin Sodium 2 gm Q8H IVP Last administered on 01/23/25at 03:14; Start 01/22/25 at 20:30; Stop 01/23/25 at 04:31; Status DC Potassium Chloride 100 ml @ 100 mls/hr AD PRN IV; Start 01/22/25 at 15:30; Stop 02/21/25 at 15:29 Potassium Chloride 20 meq AD PRN PO; Start 01/22/25 at 15:30; Stop 02/21/25 at 15:29 Potassium Chloride 20 meq AD PRN PO; Start 01/22/25 at 15:30; Stop 02/21/25 at 15:29 Oxycodone HCl 5 mg Q4H PRN PO; Start 01/22/25 at 15:30; Stop 01/29/25 at 15:29 Oxycodone HCl 10 mg Q4H PRN PO; Start 01/22/25 at 15:30; Stop 01/29/25 at 15:29 Tramadol HCl 50 mg Q6H PRN PO Last administered on 01/22/25at 18:51; Start 01/22/25 at 15:30; Stop 01/27/25 at 15:29 Acetaminophen 1,000 mg Q8H PO Last administered on 01/22/25at 23:19; Start 01/22/25 at 15:30; Stop 02/21/25 at 15:29 Aspirin 81 mg BID PO Last administered on 01/22/25at 20:13; Start 01/22/25 at 21:00; Stop 02/21/25 at 20:59 Tranexamic Acid 1,000 mg STK-MED ONCE .ROUTE Last administered on 01/22/25at 15:26; Start 01/22/25 at 15:23; Stop 01/22/25 at 15:23; Status DC Atorvastatin Calcium 10 mg HS PO Last administered on 01/22/25at 21:24; Start 01/22/25 at 21:00; Stop 02/21/25 at 20:59 Gabapentin 300 mg HS PO Last administered on 01/22/25at 21:24; Start 01/22/25 at 21:00; Stop 02/21/25 at 20:59 Losartan Potassium 50 mg HS PO; Start 01/22/25 at 21:00; Stop 02/21/25 at 20:59 Pantoprazole Sodium 40 mg DAILY PO; Start 01/23/25 at 09:00; Stop 02/22/25 at 08:59 Miscellaneous Medication 40 mg HS PO; Start 01/22/25 at 21:00; Stop 01/22/25 at 20:24; Status DC DWAINE AGUILAR NP Jan 23, 2025 07:59
--- NOTE | 2025-01-23 13:07 | NUR ---
[facility] CM MET WITH PT THIS MORNING, INITIAL ASSESSMENT DONE. PATIENT IS INDEPENDENT PRIOR TO SURGERY, LIVES AT HOME WITH HIS . AT HOME PATIENT HAS A CANE, QUAD CANE, BEDSIDE COMMODE, BPM. DENIES ANY OTHER EQUIPMENT/SERVICES. FEELS SAFE TO GO BACK HOME, STILL DRIVE PRIOR TO SURGERY, ABLE TO ASSIST WITH TRANSPORTATION AND NEEDS NECESSARY. DISCUSSED MD RECOMMENDATIONS FOR HOME W/HH AND DME PT WILL NEED STANDARD WALKER, PT AGREEABLE, CONSENT SIGNED [facility] FOR ANY IN NETWORK HH AND DME. [facility] HOME W/HH & DME ONCE APPROVED. CM TO CONTINUE TO FOLLOW UP. Addendum: 01/23/25 at 1309 by LEYDI BARILLAS LVN Amended: Links added.
--- NOTE | 2025-01-23 17:45 | NUR ---
ORTHO COORDINATOR: TEACHING REGARDING DVT AND PNEUMONIA PREVENTION, PAIN EXPECTATIONS AND PAIN MANAGEMENT. PATIENT IN BED, AT BEDSIDE. B SCD SLEEVES IN PLACE AND FUNCTIONING. INCENTIVE SPIROMETER ON BEDSIDE TRAY. MARGIE SYSTEM FUNCTIONING, LIGHT FLASHING GREEN. REVIEWED DRESSING TO BE REMOVED SEVEN DAYS AFTER SURGERY BY HOME HEALTH AGENCY. PATIENT RETURN DEMONSTRATED PROPER USE OF DEVICE AND VERBALIZED PROPER FREQUENCY OF USE. PATIENT RETURN DEMONSTRATED PROPER FOOT FLEXION AND EXTENSION EXERCISES. RATIONALE FOR BOTH PROVIDED. PATIENT PAIN CONTROLLED. PATIENT INTENDS TO DISCHARGE HOME WITH HOME HEALTH PHYSICAL THERAPY. HOME HEALTH NEXT STEPS REVIEWED, QUESTIONS ANSWERED. ENCOURAGED PATIENT TO CONTINUE PREMEDICATING PRIOR TO PHYSICAL THERAPY OR PERIODS OF HIGH ACTIVITY ONCE DISCHARGED HOME, TO CONTINUE WITH INCENTIVE SPIROMETER UNTIL LEVEL OF ACTIVITY REACHES PREOPERATIVE, TO CONTINUE FOOT FLEXION AND EXTENSION EXERCISES, TO AMBULATE AND HYDRATE. PATIENT AND VERBALIZED UNDERSTANDING TO ALL INSTRUCTIONS. PATIENT SHOWERED TODAY. PATIENT HAS HAD BOWEL MOVEMENT. NO ADDITIONAL QUESTIONS OR CONCERNS AT THIS TIME.
--- NOTE | 2025-01-24 02:31 | PN ---
SUBJECTIVE: The patient of Dr. Cunningham, status post left total knee arthroplasty. Continue on DVT prophylaxis, GI prophylaxis, pulmonary prophylaxis, tolerating physical therapy. OBJECTIVE: GENERAL: Awake, alert, oriented in person, time, and place, not in distress. VITAL SIGNS: Vital signs in the chart. HEENT: Normocephalic and atraumatic. LUNGS: Clear to auscultation. HEART: S1 and S2 are distant. EXTREMITIES: Left knee covered with surgical gauze. ASSESSMENT AND PLAN: * Status post left total knee arthroplasty. Continue with DVT prophylaxis, GI prophylaxis, pulmonary prophylaxis. Plan to discharge when cleared by Orthopedics. Follow up with Dr. Cunningham next week. * Hypertension. Continue losartan. * Dyslipidemia. Continue atorvastatin. * Pain management as per Orthopedics. * BPH, controlled on tamsulosin. DOS: 01/23/2025 TID: [id number] RECEIPT: [id number] MTDD
[2025-01-24 03:39] VITALS: BP 104/51; PULSE 76; RESP 18; TEMP 99.1
[2025-01-24 08:00] VITALS: O2SAT 99
[2025-01-24 08:02] VITALS: BP 122/66; PULSE 60; RESP 19; TEMP 99
--- NOTE | 2025-01-24 10:31 | DS ---
DISCHARGE SUMMARY [Date of admission: 01/22/2025 Date of discharge: 01/24/2025 Final diagnosis: Left Knee osteoarthritis Surgical procedures: Left total Knee arthroplasty on 01/22/2025 Summary of History and Physical: The patient is a 75 year-old male with history of severe arthrosis to the left knee that has been present for several years and has been treated conservatively with no longer adequate response to treatment. The patient is being admitted for total knee arthroplasty. Previous medical history: HTN, hyperlipedemia, colon cancer, Menigioma Previous surgical history: Appendectomy, partial colectomy, Brain meningioma Family history:Cancer, HTN, Heart disease, Diabetes Social history: Negative for use of tobacco or alcohol. Allergies: NKDA. Review of system: Negative on admission Hospital course: The patient was admitted and taken to the operating room for a total knee arthroplasty, procedure that went uneventful. Postoperatively the patient remained hemodynamically stable and afebrile. The patient received antibiotic and anticoagulation prophylaxis as per protocol. The patient was evaluated by physical therapy and started rehabilitation treatment with ambulation with the use of walker, weightbearing as tolerated, range of motion exercises and bed transfers. The patient was also evaluated by case management and arrangements were made for discharge. The patient tolerated diet well. On postop day #2 all the arrangements were completed, and the patient was dismissed home Disposition: The patient will be dismissed home with home health. Follow-up will be done at the office in 3 weeks. The patient is to continue with physical therapy and rehabilitation at home and be ambulatory with the use of a walker, weightbearing as tolerated. Continue taking pain medication as instructed as well as anticoagulation prophylaxis. Continue with home medications also as instructed and continue with pre admission diet.] KEVIN BLAIR MD Jan 24, 2025 10:31
[2025-01-24 11:47] VITALS: BP 105/60; PULSE 64; RESP 19; TEMP 98.7
[2025-01-24] MEDS ORDERED: AEC81 PO (14:49)
[2025-01-24] MEDS ORDERED: OXYC-38 PO (14:49)
--- NOTE | 2025-01-24 15:29 | NUR ---
NOTE DISCHARGE instructions and report called to [facility]. NURSE STATED UNDERSTANDING AND ALL QUESTIONS ANSWERED.
[2025-01-24 16:09] VITALS: BP 117/75; PULSE 60; RESP 19; TEMP 98.7
--- NOTE | 2025-01-24 17:50 | NUR ---
NOTE DISCHARGE INSTRUCTIONS GIVEN TO PATIENT AND SPOUSE. BOTH STATED UNDERSTANDING ALL QUESTIONS ANSWERED.
--- NOTE | 2025-01-25 06:12 | PN ---
SUBJECTIVE: Comfortable, afebrile. The patient tolerating physical therapy. Scheduled to be discharged when cleared by orthopedics. OBJECTIVE: GENERAL: He is currently awake, alert, oriented to person, time, and place, in no acute distress. VITAL SIGNS: Blood pressure 122/66, pulse 60, respiratory rate is 19. HEENT: Normocephalic, atraumatic. LUNGS: Clear to auscultation. HEART: S1, S2 are distant. ABDOMEN: Soft and nontender. EXTREMITIES: No clubbing or cyanosis. Left knee with surgical process. ASSESSMENT AND PLAN: * Status post left total knee arthroplasty. Continue with DVT prophylaxis, GI prophylaxis, and pulmonary prophylaxis. * Plan to discharge when cleared by orthopedics. * Hypertension, controlled. * Dyslipidemia. Continue current treatment. * BPH. Continue tamsulosin. * Pain management as per orthopedics. * Plan to follow up with Dr. Cunningham next week after discharge. DOS: 01/24/2025 TID: [id number] RECEIPT: [id number] MTDD
== END 2025-01-24 18:15 | disposition home or self-care (01) ==
LOC: DAH 07:18 → DAHIP 07:19 → 4BH 16:30
PROVIDERS: ADMIT Orthopaedic Surgery; ATTEND Orthopaedic Surgery
DX: M17.12 Unilateral primary osteoarthritis, left knee (principal); M25.462 Effusion, left knee; M25.562 Pain in left knee; I10 Essential (primary) hypertension; E78.5 Hyperlipidemia, unspecified; D62 Acute posthemorrhagic anemia; N40.0 Benign prostatic hyperplasia without lower urinary tract symptoms; Z90.49 Acquired absence of other specified parts of digestive tract; Z85.038 Personal history of other malignant neoplasm of large intestine; Z79.899 Other long term (current) drug therapy; Z98.890 Other specified postprocedural states
CPT/HCPCS: 85025; 85610; 87086; 81003; 36415 ×2; 87641; 27447; 96374; 96375; 82948; 88311; 88304; 97161; 97116 ×5; 97530 ×7; 96376; 80048; 85027; G0378 ×51; A4223 ×2; C1713 ×2; A4663; J7120 ×2; A4649 ×4; J3010 ×4; J0690 ×5; J3490 ×5; J2250; J2704; J2405; J2710; J1885; J3373; A9272; A4930 ×4; C1776; A5120; A4215; A4213; A4222; A4221; A4216

== ENCOUNTER 2025-04-18 08:36 | Emergency (ER) | payer OTHER ==
[~2025-04-18] VITALS: Ht 172.7 cm; Wt 97.1 kg
[~2025-04-18 08:36] MED LIST changes: +AEC81 PO; -MELA10TA2 PO; +MELA10TA37 PO; +OXYC-38 PO
[2025-04-18 09:05] LABS: IMMATURE GRANULOCYTE ABSOLUTE 0.04 K/uL (0-1); NUCLEATED RED BLOOD CELLS 0.0 % (0.0-0.19); PLATELET COUNT (AUTO) 161 K/uL (130-400); RED BLOOD CELL COUNT(AUTO) 4.80 MIL/uL (4.50-6.20); RED CELL DISTRIBUTION WIDTH 13.4 % (11.0-15.5); WHITE BLOOD COUNT (AUTO) 10.6 K/uL (4.8-10.8)
[2025-04-18] MEDS: 0.9%NACL 1000ML 1,000 ML IV SCH (09:11)
[2025-04-18 09:16] LABS: INFLUENZA TYPE A Negative For Type A (NEGATIVE); INFLUENZA TYPE B Negative For Type B (NEGATIVE)
[2025-04-18 09:19] LABS: CREATININE 1.4 mg/dL (0.5-1.3); GLOMERULAR FILTR. RATE CALC 52.0 mL/min (>90); GLUCOSE,RANDOM 168.0 mg/dL (70-105); SODIUM SERUM 137.0 mmol/L (136-145); UREA NITROGEN, BLOOD 23.0 mg/dL (7-18)
[2025-04-18 09:23] LABS: ASPARTATE AMINOTRANSFERASE 11.0 U/L (10-37); TOTAL PROTEIN, SERUM 7.0 g/dL (6.0-8.3)
--- NOTE | 2025-04-18 09:40 | HMCIMG ---
EXAM: CR Chest, 2 View. CLINICAL HISTORY: fever COMPARISON: None provided. FINDINGS: LUNGS: The lungs show no infiltrate or other acute finding. PLEURAL SPACES: No evidence of pleural effusion or pneumothorax. MEDIASTINUM: The cardiomediastinal silhouette is within normal limits. BONES: No acute osseous abnormality. IMPRESSION: No acute cardiopulmonary pathology is evident. /[place]
[2025-04-18 11:08] LABS: APPEARANCE,URINE CLEAR (CLEAR); GLUCOSE, URINE (UA) 30 mg/dL (NEGATIVE); LEUKOCYTE ESTERASE ,URINE NEGATIVE Leu/uL (NEGATIVE); NITRATE,URINE NEGATIVE (NEGATIVE); OCCULT BLOOD,URINE MODERATE (NEGATIVE)
[2025-04-18 11:13] LABS: ADD UA MICROSCOPIC YES
[2025-04-18 11:24] LABS: SQUAMOUS EPITHELIAL CELL,UR RARE /HPF (0-2)
[2025-04-18 11:34] VITALS: TEMP 99
[2025-04-18] MEDS ORDERED: AZIT250T9 PO (11:49)
--- NOTE | 2025-04-18 11:49 | ERN ---
ED Note History of Present Illness Stated Complaint: FLU LIKE SYMPTOMS Chief Complaint: Flu Symptoms Time Seen by MD: 08:50 Dictation: 75-year-old male presenting to the emergency department with 1-2 days of generalized weakness cough cold congestion and body aches, patient was febrile at home and reports sick contacts at home Allergies: Coded Allergies: No Known Drug Allergies (Unverified Allergy, Unknown, 05/26/20) Uncoded Allergies: nka (Allergy, Unknown, 02/05/14) Home Meds Active Scripts Oxycodone HCl/Acetaminophen (Percocet 5-325 mg Tablet) 5 Mg-325 Mg Tablet, 1-2 TAB PO Q8H PRN for ACUTE POSTOP PAIN (G89.18) for 7 Days, #42 TAB 0 Refills Prov:KEVIN BLAIR MD 01/24/25 Aspirin (ASPIRIN 81 MG ECTAB) 81 Mg Ectab, 81 MG PO BID for DVT PROPHYAXIS for 20 Days, #40 TAB.EC Prov:KEVIN BLAIR MD 01/24/25 Reported Medications Pantoprazole Sodium (Pantoprazole Sodium) 40 Mg Tablet.dr, 40 MG PO DAILY, TAB 01/21/25 Famotidine (Famotidine) 40 Mg Tablet, 40 MG PO HS, TAB 01/21/25 Cyanocobalamin (Vitamin B-12) (Vitamin B12) 1,000 Mcg Tablet, 3000 MCG PO SAT/SUN, TAB 01/21/25 Acetaminophen (Acetaminophen Extra Strength) 500 Mg Tablet, 500 MG PO Q4HPRN PRN for PAIN, TAB 01/21/25 Atorvastatin Calcium (LIPITOR) 10 Mg Tab, 10 MG PO HS, TAB 10/13/23 Gabapentin (Gabapentin) 100 Mg Capsule, 300 MG PO HS, CAP 10/13/23 Losartan Potassium (Losartan Potassium) 50 Mg Tablet, 50 MG PO HS, TAB 10/13/23 Multivitamin (Multi Vitamin Daily) 1 Each Tablet, 2 TAB PO DAILY, TAB 10/13/23 Melatonin (Melatonin) 10 Mg Tablet, 10 MG PO HSPRN PRN for insomnia, TAB 10/13/23 Past Medical History Past Medical History: High Cholesterol, Hypertension Additional Past Medical Hx: MENINGIOMA OF THE BRAIN, COLON CA Surgical History: Appendectomy, Cholecystectomy Surgical History Other: LEFT KNEE REPLACEMENT Review of System Dictation Constitutional: Per HPI Eyes: Negative for injury, pain,redness, and discharge ENT: Per HPI Cardiovascular: Negative for chest pain, palpitations, and edema Respiratory: Negative for shortness of breath, positive for cough Abdomen/GI: Negative for abdominal pain, nausea, vomiting, diarrhea, and constipation Back: Negative for injury and pain : Negative for injury, bleeding and discharge MS/Extremity: Negative for injury and deformity Skin: Negative for rash, and discoloration Neuro: Negative for headache, weakness, numbness, tingling, and seizure Psych: Negative for suicide ideation, homicidal ideation, and hallucinations Initial Vital Sign VS Vital Signs Date Time Temp Pulse Resp B/P (MAP) Pulse Ox O2 Delivery O2 Flow Rate FiO2 04/18/25 08:37 102.9 113 20 133/85 95 Room Air 04/18/25 10:17 0 21 Physical Exam Dictation General: awake, alert, febrile, nontoxic Head/Face: Normocephalic, atraumatic Eyes: PERRL, EOMI, vision at baseline ENT: oral cavity clear, TMs clear, no signs of infection Neck: Trachea midline, supple, no nuchal rigidity Cardiovascular: Borderline tachycardia normal S1/S2, No MRGs, no JVD Respiratory: CTAB, no respiratory distress, No rales or wheezes Abdomen: Soft, non-tender, non-distended, normal bowel sounds, no guarding or rebound. Skin: Warm, dry, normal turgor, no rash MS/Extremity: Pulses equal, no cyanosis, neurovascular intact, FROM Neuro: COAx4, GCS 15, strength 5/5, CN 2-12 intact, normal cerebellar exam, normal gait, Psych: Normal behavior, mood, and affect normal Results (Laboratory/Radiology) Laboratory/Radiology Laboratory Tests Test 04/18/25 08:45 04/18/25 08:50 04/18/25 09:54 04/18/25 10:28 Influenza Type A Antigen Negative For Type A Influenza Type B Antigen Negative For Type B White Blood Count 10.6 K/uL (4.8-10.8) Red Blood Count 4.80 MIL/uL (4.50-6.20) Hemoglobin 14.3 g/dL (14.0-18.0) Hematocrit 43.9 % (42-54) Mean Corpuscular Volume 91.5 fL (79-99) Mean Corpuscular Hemoglobin 29.8 pg (27.0-33.0) Mean Corpuscular Hemoglobin Concent 32.6 g/dL (32.0-36.0) Red Cell Distribution Width 13.4 % (11.0-15.5) Platelet Count 161 K/uL (130-400) Mean Platelet Volume 11.2 fL (7.5-10.5) H Immature Granulocyte % (Auto) 0.4 % (0-1) Neutrophils (%) (Auto) 81.6 % (40.0-77.0) H Lymphocytes (%) (Auto) 9.5 % (21.0-51.0) L Monocytes (%) (Auto) 8.2 % (3.0-13.0) Eosinophils (%) (Auto) 0.0 % (0.0-8.0) Basophils (%) (Auto) 0.3 % (0.0-5.0) Neutrophils # (Auto) 8.6 K/uL (1.8-7.7) H Lymphocytes # (Auto) 1.0 K/uL (1.0-4.8) Monocytes # (Auto) 0.9 K/uL (0.1-1.0) Eosinophils # (Auto) 0.00 K/uL (0.00-0.70) Basophils # (Auto) 0.03 K/uL (0.00-0.20) Absolute Immature Granulocyte (auto 0.04 K/uL (0-1) Nucleated Red Blood Cells 0.0 % (0.0-0.19) White Cell Morphology Comment See comments Sodium Level 137 mmol/L (136-145) Potassium Level 3.9 mmol/L (3.5-5.1) Chloride Level 103 mmol/L (101-111) Carbon Dioxide Level 28 mmol/L (21-32) Blood Urea Nitrogen 23 mg/dL (7-18) H Creatinine 1.4 mg/dL (0.5-1.3) H Glomerular Filtration Rate Calc 52 mL/min (>90) Random Glucose 168 mg/dL (70-105) H Lactic Acid Level 2.4 mmol/L (0.8-2.5) Total Calcium 8.4 mg/dL (8.5-10.1) L Total Bilirubin 0.7 mg/dL (0.2-1.0) Direct Bilirubin 0.2 mg/dL (0.0-0.3) Aspartate Amino Transf (AST/SGOT) 11 U/L (10-37) Alanine Aminotransferase (ALT/SGPT) 23 U/L (12-78) Alkaline Phosphatase 115 U/L (50-136) Troponin I High Sensitivity 8 ng/L (4-75) Total Protein 7.0 g/dL (6.0-8.3) Albumin 3.6 g/dL (3.5-5.0) Group A Streptococcus Rapid negative (NEGATIVE) Urine Color YELLOW (YELLOW) Urine Appearance CLEAR (CLEAR) Urine pH 5.5 (5.0-8.0) Urine Specific [place] 1.025 (1.001-1.031) Urine Protein 30 mg/dL (NEGATIVE) H Urine Glucose (UA) 30 mg/dL (NEGATIVE) H Urine Ketones NEGATIVE mg/dL (NEGATIVE) Urine Occult Blood MODERATE (NEGATIVE) H Urine Nitrate NEGATIVE (NEGATIVE) Urine Bilirubin NEGATIVE mg/dL (NEGATIVE) Urine Urobilinogen 0.2 mg/dL (0.2-1.0) Urine Leukocyte Esterase NEGATIVE Yas/uL Urine RBC 6-10 /HPF (0-1) H Urine WBC 2-5 /HPF (0-1) H Urine Squamous Epithelial Cells RARE /HPF (0-2) Urine Bacteria None /HPF (None Seen) Labs Reviewed?: Yes EKG Comment: Heart rate 101, normal sinus tachycardia, no STEMI or STEMI equivalent ED Course ED Course Orders Procedure Category Date Status Time Influenza Type A & B, LAB 04/18/25 Complete Rapid 08:51 12 Lead Ekg Tracing- EKG 04/18/25 Logged Technical 08:51 Basic Metabolic Panel LAB 04/18/25 Complete 08:51 Blood Cult VARUN 04/18/25 In Process 08:51 Cbc With Differential LAB 04/18/25 Complete 08:51 Hepatic Function Panel LAB 04/18/25 Complete 08:51 Troponin I High LAB 04/18/25 Complete Sensitivity 08:51 Urinalysis Profile LAB 04/18/25 Complete 08:51 Lactic Acid LAB 04/18/25 Complete 08:51 Chest 1vw RAD 04/18/25 Resulted 08:51 Ceftriaxone 2gm Vial PHA 04/18/25 In Process (Rocephin 2gm Inj) 08:51 0.9%Nacl 1000ml (Ns PHA 04/18/25 In Process 1000ml) 09:00 Acetaminophen 500mg PHA 04/18/25 In Process Tab (Tylenol 500mg T 08:51 Rapid (Group A Strep) LAB 04/18/25 Complete 09:03 Acetaminophen 500mg PHA 04/18/25 Complete Tab (Tylenol 500mg T 09:10 Current Medications Medications (Trade) Dose Ordered Sig/Rex Route PRN Reason Start Time Stop Time Status Last Admin Dose Admin Acetaminophen (TYLenol 500MG TAB) 500 mg STK-MED ONCE .ROUTE 04/18/25 09:10 04/18/25 09:10 DC Acetaminophen (TYLenol 500MG TAB) 1,000 mg ONCE PO 04/18/25 08:51 04/18/25 13:00 04/18/25 09:11 Ceftriaxone Sodium (Rocephin 2gm Inj) 2 gm ONCE IVPB 04/18/25 08:51 04/18/25 13:00 04/18/25 09:11 Sodium Chloride 1,000 ml @ 0 mls/hr ONCE IV 04/18/25 09:00 04/18/25 13:00 04/18/25 09:11 Vital Signs Date Time Temp Pulse Resp B/P (MAP) Pulse Ox O2 Delivery O2 Flow Rate FiO2 04/18/25 10:17 99.9 85 18 124/57 96 Room Air* 0 21 04/18/25 09:11 102.9 04/18/25 08:37 102.9 113 20 133/85 95 Room Air Medical Decision Making MDM MDM: Differential diagnosis: Rationale: Tests considered and ordered secondary to shared decision making include: Previous outside records reviewed: Old ER visits. Risk of complication and/or morbidity or mortality of patient management: None Medications-Per medication reconciliation Need for hospitalization: Patient does not meet criteria for hospitalization. Need for emergency major/minor surgery: No There are no social concerns with this patient. Prescription drug management Prescriptions will include symptomatic care Patient's prior external medical records from other ER visits were reviewed by me as indicated. Prior testing and results from previous visits were reviewed. Prior tests were taken into account with medical decision making and resource utilization, independent historian/historians were used to obtain complete medical history. I independently interpreted the test that were performed, results were reviewed by me and considered findings on radiology if ordered. Medical management and examination interpretation discussions were had by me with other qualified healthcare professionals as indicated for the patient's care. 75-year-old male with upper respiratory tract infection, viral syndrome, febrile on arrival nontoxic chest x-ray urine clear labs all stable no leukocytosis clear lactic acid, low clinical gestalt for a focal bacterial infection, patient wants to go home likely viral syndrome and dehydration prescriptions given advised to return if worse in any way. Patient agreed. DX & DISP Disposition: Discharge Departure Impression: Primary Impression: Fever Additional Impression: Acute URI Condition: Stable Scripts Azithromycin (Azithromycin) 250 Mg Tablet 1 TAB PO AD for 5 Days, #6 TAB 0 Refills 2 the first day followed by 1 for days 2-5 Prov: OCHOA SAENZ MD 04/18/25 Referrals: GUILLE BLAIR MD (PCP) OCHOA SAENZ MD Apr 18, 2025 11:49
[2025-04-18 11:51] VITALS: BP 129/57; PULSE 88; RESP 18; TEMP 99.9; O2SAT 95
--- NOTE | 2025-04-19 11:19 | EKG ---
[facility] Test Date: 2025-04-18 Test Time: 09:01:16 Pat Name: NASRA JOYNER Department: ED Room: Gender: M [employer]: [birth year] : 1950 Requested By: OCHOA SAENZ Order Number: [id number] Reading MD: Gricelda Gil Measurements Intervals [place] Rate: 101 P: 62 RI: 149 QRS: 43 QRSD: 91 T: 59 QT: 322 QTc: 417 Interpretive Statements Sinus tachycardia Borderline ST elevation, anterior leads Compared to ECG 10/07/2023 12:16:26 ST (T wave) deviation now present Sinus bradycardia no longer present Electronically Signed On 04-22-2025 08:50:42 IT TECHNICAL SPECIALIST by Gricelda Gil Please click the below link to view image of tracing.
== END 2025-04-18 12:06 | disposition home or self-care (01) ==
LOC: EDH 08:36
DX: J06.9 Acute upper respiratory infection, unspecified (principal); E78.00 Pure hypercholesterolemia, unspecified; I10 Essential (primary) hypertension; Z79.82 Long term (current) use of aspirin; Z79.899 Other long term (current) drug therapy; Z85.038 Personal history of other malignant neoplasm of large intestine; Z90.49 Acquired absence of other specified parts of digestive tract; Z96.652 Presence of left artificial knee joint
CPT/HCPCS: 99285; 96365; 71045; 96366; 80076; 84484; 80048; 85025; 87040 ×2; 87880; 87804 ×2; 83605; 81001; 36415; 93005; J7030; J0696